=== PATIENT | female | born 1990 | race Caucasian/White ===

== ENCOUNTER → 2021-06-22 | Outpatient (CLI) | payer OTHER ==
[~2021-06-22] MED LIST: DECADRON6 MG PO; MECLIZINE HCL25 MG PO; ZITHROMAX250 MG PO
== END ==
LOC: KOH-I 16:00
DX: R07.9 Chest pain, unspecified (principal)
CPT/HCPCS: 71046

== ENCOUNTER 2021-06-23 20:38 | Emergency (ER) | payer OTHER ==
[2021-06-23 21:43] LABS: HEMOGLOBIN 11.9 gm/dl (12.3-15.3); RED BLOOD COUNT 4.44 M/UL (4.00-5.10); WHITE BLOOD COUNT 9.5 K/UL (4.5-11.0)
[2021-06-23 22:09] LABS: BUN/CREATININE RATIO 8 (0-10)
== END 2021-06-24 00:20 | disposition home or self-care (01) ==
LOC: ER1 20:38
PROVIDERS: Physician Assistant
DX: R07.9 Chest pain, unspecified (principal); M79.602 Pain in left arm; I10 Essential (primary) hypertension; Z90.49 Acquired absence of other specified parts of digestive tract; Z88.2 Allergy status to sulfonamides
CPT/HCPCS: 71045; 80053; 82550; 82553; 83874; 84484; 85025; 93005; 99285

== ENCOUNTER 2022-04-25 17:14 | Outpatient (CLI) | payer OTHER | END 2022-04-25 18:44 | disposition home or self-care (01) | LOC: GENOP 17:14 | DX: O36.8130 Decreased fetal movements, third trimester, not applicable or unspecified (principal); O47.03 False labor before 37 completed weeks of gestation, third trimester; O10.913 Unspecified pre-existing hypertension complicating pregnancy, third trimester; O24.415 Gestational diabetes mellitus in pregnancy, controlled by oral hypoglycemic drugs; Z3A.32 32 weeks gestation of pregnancy | CPT/HCPCS: 81001; 82962; G0463 ==

== ENCOUNTER 2022-05-17 22:01 | Emergency (ER) | payer OTHER | END 2022-05-17 23:40 | disposition home or self-care (01) | LOC: GENOP 22:01 | DX: O99.891 Other specified diseases and conditions complicating pregnancy (principal); R10.9 Unspecified abdominal pain; Z3A.35 35 weeks gestation of pregnancy | CPT/HCPCS: 81001; 82962; 99283; G0463 ==